=== PATIENT | male | born 1985 | race Caucasian/White ===

== ENCOUNTER 2022-09-29 21:17 | Inpatient (IN) | payer SELFPAY ==
[2022-09-29 21:29] VITALS: BMI 32.9
[2022-09-29] MEDS ORDERED: METOCLOPRAMIDE HCL INJECTION 10 MG/2 ML VIAL IVPB ONE (22:06)
[2022-09-29] MEDS ORDERED: MECLIZINE HCL 25 MG TABLET (FP) PO ONE (22:06)
[2022-09-29] MEDS ORDERED: METOCLOPRAMIDE HCL INJECTION 10 MG/2 ML VIAL ONE (22:33)
[2022-09-29] MEDS ORDERED: MECLIZINE HCL 25 MG TABLET (FP) ONE (22:33)
[2022-09-29 23:05] LABS: BASO % 0.2 % (0-2.0); EOS % 0.1 % (0-4.5); HEMOGLOBIN 14.5 GM/dL (11.7-16.9); LYMPH % 8.6 % (8-40); MCH 30.3 pg (25.7-33.7); MCHC 34.6 g/dl (32.0-35.9); MEAN CELL VOLUME 87.5 fl (80-96); MEAN PLT VOLUME 9.1 fl (7.5-11.1); MONO % 2.9 % (3.8-10.2); NEUT % 88.2 % (42.8-82.8); PLATELET COUNT 270 10^3/uL (134-434); RDW 12.4 % (11.9-15.9); WHITE BLOOD COUNT 9.4 K/mm3 (4.0-10.0)
[2022-09-29 23:11] LABS: INR 1.17 (0.83-1.09); PROTHROMBIN TIME (PATIENT) 13.5 SEC (9.7-13.0)
[2022-09-29 23:14] LABS: ACTIVATED PTT 34.9 SECONDS (25.2-36.5)
[2022-09-29 23:27] LABS: CALCIUM 9.4 mg/dL (8.5-10.1)
[2022-09-29 23:28] LABS: ALBUMIN 4.4 g/dl (3.4-5.0); BLOOD UREA NITROGEN 12.9 mg/dL (7-18); MAGNESIUM 2.4 mg/dL (1.8-2.4)
[2022-09-29 23:31] LABS: CREATININE 0.6 mg/dL (0.55-1.3)
[2022-09-29 23:33] LABS: BILIRUBIN,TOTAL 0.6 mg/dL (0.2-1); TOT PROT 8.4 g/dl (6.4-8.2)
[2022-09-30] MEDS ORDERED: diazePAM 5 MG TABLET PO ONE (00:30)
[2022-09-30] MEDS ORDERED: diazePAM 5 MG TABLET ONE (01:40)
[2022-09-30] MEDS ORDERED: SODIUM CHLORIDE 0.45% 1,000 ML IV SCH (04:00)
[2022-09-30 07:18] LABS: COCAINE, UR NEGATIVE (NEGATIVE); OPIATES, URI NEGATIVE (NEGATIVE); URINE AMPHETAMINES NEGATIVE (NEGATIVE); URINE BARBITURATES NEGATIVE (NEGATIVE)
[2022-09-30 07:19] LABS: PHENCYCLIDINE,URINE NEGATIVE (NEGATIVE)
[2022-09-30 07:30] VITALS: BP 142/89; PULSE 89; RESP 18; TEMP 98.5
[2022-09-30 07:51] LABS: METHADONE, UR NEGATIVE (NEGATIVE); URINE BENZODIAZEPINES POSITIVE (NEGATIVE)
[2022-09-30 08:00] LABS: BASO % 0.3 % (0-2.0); EOS % 0.3 % (0-4.5); HEMATOCRIT 39.5 % (35.4-49); HEMOGLOBIN 13.3 GM/dL (11.7-16.9); MCH 29.7 pg (25.7-33.7); MCHC 33.6 g/dl (32.0-35.9); MEAN CELL VOLUME 88.2 fl (80-96); MEAN PLT VOLUME 9.3 fl (7.5-11.1); MONO % 7.5 % (3.8-10.2); NEUT % 71.9 % (42.8-82.8); PLATELET COUNT 279 10^3/uL (134-434); RBC 4.48 M/mm3 (4.00-5.60); RDW 12.3 % (11.9-15.9); WHITE BLOOD COUNT 10.3 K/mm3 (4.0-10.0)
[2022-09-30 08:21] LABS: ALBUMIN 3.9 g/dl (3.4-5.0); BLOOD UREA NITROGEN 11.4 mg/dL (7-18); CHOLESTEROL 219 mg/dL (50-200); MAGNESIUM 2.4 mg/dL (1.8-2.4)
[2022-09-30 08:22] LABS: TRIGLYCERIDES 74 mg/dL (0-150)
[2022-09-30 08:23] LABS: LDL CHOLESTEROL (ONLY SJRH) 160 mg/dL (5-100)
[2022-09-30 08:24] LABS: BILIRUBIN,TOTAL 0.7 mg/dL (0.2-1); HDL CHOLESTEROL 63 mg/dL (40-60); PHOSPHOROUS 4.9 mg/dL (2.5-4.9)
[2022-09-30 08:25] LABS: CREATININE 0.7 mg/dL (0.55-1.3); TOT PROT 7.5 g/dl (6.4-8.2)
[2022-09-30 08:31] LABS: URINE APPEARANCE CLEAR; URINE BILIRUBIN NEGATIVE (NEGATIVE); URINE COLOR YELLOW; URINE GLUCOSE (UA) NEGATIVE (NEGATIVE)
[2022-09-30 08:32] LABS: PH,URINE 6.5 (5.0-8.0); URINE KETONE TRACE (NEGATIVE); URINE LEUK ESTERASE NEGATIVE (NEGATIVE); URINE NITRITE NEGATIVE (NEGATIVE); URINE PROTEIN NEGATIVE (NEGATIVE); URINE UROBILINOGEN 0.2 mg/dL (0.2-1.0)
[2022-09-30] MEDS ORDERED: ENOXAPARIN NA (PORCINE) 40 MG/0.4 ML DISP.SYRIN SQ SCH (10:00)
== END 2022-09-30 14:39 | disposition home or self-care (01) | DRG 111 ==
LOC: JER 21:17 → JERBED 09-30 00:31
PROVIDERS: ADMIT Internal Medicine; ATTEND Internal Medicine
DX: H81.10 Benign paroxysmal vertigo, unspecified ear (principal); R26.81 Unsteadiness on feet; I10 Essential (primary) hypertension; E66.9 Obesity, unspecified; Z68.32 Body mass index [BMI] 32.0-32.9, adult
CPT/HCPCS: 0241U-QW; 36415; 70450-TC; 70496-TC; 70498-TC; 71045-TC-FY; 80053; 80061; 80307; 81003; 83036; 83735; 84100; 84443; 84484; 85025; 85610; 85730; 86850; 86900; 86901; 87086; 93005; 93010; 99285-25; Q9967